=== PATIENT | male | born 1960 | race Caucasian/White ===

== ENCOUNTER 2019-08-04 09:06 | Outpatient (CLI) | payer OTHER ==
--- NOTE | 2019-08-04 13:56 | NM ---
NUCLEAR MEDICINE BONE SCAN WHOLE BODY: (Skeletal scintigraphy) DATE: 08/04/2019 HISTORY: 58-year-old male with prostate cancer TECHNIQUE: IV injection of technetium 99m-MDP: 30.6 mCi 3 hour delayed whole body skeletal scintigraphy in anterior and posterior views. FINDINGS: There are no foci of asymmetrically increased uptake that are particularly suspicious for bone metast ases. IMPRESSION: No compelling evidence of skeletal metastasis.
== END 2019-08-04 09:07 | disposition home or self-care (01) ==
LOC: NM 09:06
PROVIDERS: ATTEND Urology
DX: C61 Malignant neoplasm of prostate (principal)
CPT/HCPCS: 78306; A9503

== ENCOUNTER 2019-08-17 13:46 | Outpatient (CLI) | payer OTHER ==
[2019-08-17] MEDS ORDERED: Magnevist 469MG/ML 20 ML VIAL ONE (16:10)
--- NOTE | 2019-08-17 16:25 | MRI ---
EXAM: MRI of the pelvis/prostate without and with contrast HISTORY: Prostate cancer status post biopsy 8-9 weeks ago COMPARISON: None TECHNIQUE: Multiplanar multisequence MR images were obtained of the pelvis without and with IV contra st. Evaluation of this exam was performed with a [employer] workstation. FINDINGS: Central and peripheral gland: Moderate hypertrophy of the central gland consistent with BPH. Prostate volume is approximately 32 mL. There is an area of low T2 signal in the left aspect of the prostate. This area extends from the base to the mid gland. This involves the central gland and perip heral zone of the prostate and measures 2.5 cm in greatest dimension. There is subtle restricted diffusion and low signal on the ADC map in the peripheral zone of the prostate in this location. This abuts the prostate capsule for greater than 1.5 cm in length. Seminal vesicles: Intact without abnormality Neurovascular bundles: Intact. The left neurovascular bundle is near the low T2 signal lesion describ ed above. Pelvic lymph nodes: No pelvic adenopathy Other visualized intrapelvic structures: Unremarkable Osseous structures: No marrow signal abnormality IMPRESSION: PI-RADS Category 5-very high likelihood that a clinically significant cancer is present.
== END 2019-08-17 13:47 | disposition home or self-care (01) ==
LOC: TBSIIMAG 13:46
PROVIDERS: ATTEND Urology
DX: C61 Malignant neoplasm of prostate (principal)
CPT/HCPCS: 72197; A9579

== ENCOUNTER 2019-10-24 13:08 | Outpatient (CLI) | payer OTHER ==
--- NOTE | 2019-10-24 14:40 | RAD ---
Cystogram HISTORY: Prostatectomy. Evaluate for bladder leak. FINDINGS: Approximately 200 cc of water-soluble contrast was carefully instilled into the urinary carol dder via the indwelling [place] catheter. Bladder was initially decompressed by the catheter. Normal contour. No leak from the bladder evident. Contrast did leak along the urethra around the catheter. IMPRESSION : No evidence of bladder leak.
== END 2019-10-24 13:09 | disposition home or self-care (01) ==
LOC: RAD 13:08
PROVIDERS: ATTEND Urology
DX: C61 Malignant neoplasm of prostate (principal)
CPT/HCPCS: 51600; 74430

== ENCOUNTER 2019-11-08 10:25 | Emergency (ER) | payer OTHER ==
--- NOTE | 2019-11-08 11:48 | ULT ---
EXAM: Left lower extremity venous Doppler US HISTORY: left lower extremity edema and pain FINDINGS: Grayscale, color-flow, Doppler evaluation, spectral analysis of the left lower extremity venous struc tures is performed with 2-D imaging. The left common femoral, superficial femoral, popliteal, posterior tibial, proximal greater saphenous and profunda femoral veins are imaged. There is absence of compression and minimal flow in the left femoral, popliteal and posterior tibial veins. The remainder of the deep veins of the left lower extremity otherwise patent. IMPRESSION: Deep vein thrombosis in the left lower extremity. Discussed over the telephone with ER physician Dr. Lee Marr at 11:43 AM
== END 2019-11-08 12:22 | disposition home or self-care (01) ==
LOC: ERS 10:25
DX: I82.402 Acute embolism and thrombosis of unspecified deep veins of left lower extremity (principal)